=== PATIENT | female | born 2000 | race Caucasian/White ===

== ENCOUNTER 2021-06-30 14:28 | Emergency (ER) | payer OTHER, SELFPAY ==
--- NOTE | ~2021-06-30 | US_ITS ---
EXAMINATION: US OB <=14 wk fetus w TV EXAM DATE: 06/30/2021 20:19 INDICATION: r/o ectopic 1st trimester. Vaginal bleeding. TECHNIQUE: Pelvic obstetrical transabdominal sonogram was performed by a technologist. There are mu ltiple grayscale and Doppler images available for interpretation. There are no earlier studies of th is gestation for comparison. FINDINGS: Uterus measures 6.8 x 3.9 x 4.3 cm, and is morphologically normal. Endometrial stripe tanner ures 7 mm, within normal limits. There is small free pelvic fluid. Right adnexa: The ovary measures 3.7 x 2.5 x 1.9 cm and is morphologically normal. Ovarian vascular f low confirmed. Left adnexa: The ovary measures 2.7 x 1.6 x 1.2 cm and is morphologically normal. Ovarian vascular fl ow confirmed. IMPRESSION: No intrauterine or extrauterine identified. Early intrauterine or rec ent spontaneous are common causes of elevated beta hCG in absence of intrauterine confirmation. Ultrasound can sometimes identify, but never exclude an ectopic in the setti ng of positive beta hCG. Follow up as warranted clinically with serial beta hCG levels or ultrasound . Reviewed, dictated and finalized at location [facility] IMPRESSION: No intrauterine or extrauterine identified. Early intraut erine or recent spontaneous are common causes of elevated be ta hCG in absence of intrauterine confirmation. Ultrasound can somet imes identify, but never exclude an ectopic in the setting of positiv e beta hCG. Follow up as warranted clinically with serial beta hCG levels or u ltrasound.
[2021-06-30 14:32] VITALS: BP 137/72; PULSE 76; RESP 16; TEMP 36.3; O2SAT 100
[2021-06-30 18:11] VITALS: BP 120/77; BP 128/81; PULSE 49; PULSE 61
[2021-06-30 18:15] VITALS: BP 121/86; PULSE 76
[2021-06-30 18:22] LABS: Basophils Percent Auto 0.3 % (0.2-1.2); Eosinophils Absolute Auto 0.1 K/mm3 (0-0.3); Eosinophils Percent Auto 0.8 % (0-4.4); Hematocrit 39.9 % (37.0-47.0); Hemoglobin 13.5 g/dL (12.0-15.0); Immature Granulocyte Absolute 0.01 K/mm3 (0.00-0.031); Immature Granulocyte Percent A 0.2 % (0-0.5); Lymphocytes Absolute Auto 2.31 K/mm3 (0.9-3.2); Lymphocytes Percent Auto 39.2 % (18.3-44.2); Mean Corpuscular HGB Conc 33.8 g/dl (32-36); Mean Corpuscular Hemoglobin 29.3 pg (26-34); Mean Corpuscular Volume 86.7 fl (80-100); Mean Platelet Volume 10.3 fl (7.4-10.4); Monocytes Absolute Auto 0.4 K/mm3 (0.1-0.6); Monocytes Percent Auto 7.1 % (2.6-8.5); Neutrophils Absolute Auto 3.1 K/mm3 (1.3-6.7); Neutrophils Percent Auto 52.4 % (45.5-73.1); Platelet Count Result 236 k/mm3 (150-375); Red Cell Distribution Width 11.9 % (11.5-14.5); White Blood Count 5.9 K/mm3 (4.5-10.0)
--- NOTE | 2021-06-30 18:59 | ED.PREGNANCY ---
HPI - General Chief complaint: Vaginal Bleeding Stated complaint: vag bleed 5wks preg Time Seen by Provider: 06/30/21 17:24 Source: patient Mode of arrival: ambulatory Limitations: no limitations History of Present Illness HPI Narrative: This is a 21-year-old G1, P0, about 7 weeks that presents to the emergency department for vaginal bleeding. Reports she started to note vaginal bleeding 2 days ago. She has not seen an [employer]OR yet this or had an ultrasound. She has had some associated pelvic cramping. Denies fever or vomiting. Review of Systems Review of Systems: CONSTITUTIONAL: Denies fever GASTROINTESTINAL: Reports pelvic pain. Denies nausea, vomiting All systems reviewed & are unremarkable except as noted in HPI and below PMFSH Past Medical History Medical History (Updated 06/30/21 @ 21:08 by Mary Escamilla PA-C) History of hypothyroidism Social History Social History (Updated 06/30/21 @ 19:04 by Mary Escamilla PA-C) Smoking status: Never smoker Exam Narrative: GENERAL: Well-appearing, well-nourished, and in no acute distress. HEAD: Normocephalic, atraumatic. EYES: EOMI. CHEST: No respiratory distress. HEART: Regular rate EXTREMITIES: Normal range of motion. No edema. SKIN: Warm, dry, no rash. NEURO: No focal deficits. Alert and oriented x3. PSYCH: Normal mood and affect PELVIC: Normal external genitalia. Moderate amount of dark red blood in the vaginal vault. Cervix closed Course Vital Signs Vital signs: Vital Signs Temperature 97.3 F L 06/30/21 14:32 Pulse Rate 76 06/30/21 14:32 Respiratory Rate 16 06/30/21 14:32 Blood Pressure 137/72 06/30/21 14:32 Pulse Oximetry 100 06/30/21 14:32 Temperature 97.3 F L 06/30/21 14:32 Pulse Rate 54 L 06/30/21 21:02 Respiratory Rate 16 06/30/21 21:02 Blood Pressure 119/71 06/30/21 21:02 Pulse Oximetry 100 06/30/21 21:02 MDM - OB/Uterine Contractions MDM Narrative Medical decision making narrative: Patient presents to the emergency department for possible miscarriage. About 8 weeks by LMP. Reports she started to have pelvic cramping and vaginal bleeding 2 days ago. Her vitals are stable. Hemoglobin is normal. Moderate amount of bleeding on exam. Patient is O-. Given dose of RhoGam. Quantitative beta-hCG is 308. Obstetrics ultrasound is without intrauterine or extrauterine . Patient and family updated on case findings. Patient likely is having a miscarriage. She is not from this area. They are planning on continuing to drive home to see her doctor back at home. Was instructed to have close follow-up with her doctor to recheck her hormone and for further evaluation. She was given warnings to return to the ER Lab Data Attestation: I reviewed the patient's lab results. Result diagrams: 06/30/21 18:04 Labs: Lab Results 06/30/21 06/30/21 06/30/21 Range/Units 18:04 18:04 18:04 WBC 5.9 (4.5-10.0) K/mm3 RBC 4.60 (4.2-5.4) M/mm3 Hgb 13.5 (12.0-15.0) g/dL Hct 39.9 (37.0-47.0) % MCV 86.7 (80-100) fl MCH 29.3 (26-34) pg MCHC 33.8 (32-36) g/dl RDW 11.9 (11.5-14.5) % Plt Count 236 (150-375) k/mm3 MPV 10.3 (7.4-10.4) fl Immature Gran % (Auto) 0.2 (0-0.5) % Neut % (Auto) 52.4 (45.5-73.1) % Lymph % (Auto) 39.2 (18.3-44.2) % [place] % (Auto) 7.1 (2.6-8.5) % Eos % (Auto) 0.8 (0-4.4) % Baso % (Auto) 0.3 (0.2-1.2) % Lymph # (Auto) 2.31 (0.9-3.2) K/mm3 [place] # (Auto) 0.4 (0.1-0.6) K/mm3 Eos # (Auto) 0.1 (0-0.3) K/mm3 Baso # (Auto) 0.0 (0.0-0.1) K/mm3 Abs Immat Gran (auto) 0.01 (0.00-0.031) K/mm3 Absolute Neuts (auto) 3.1 (1.3-6.7) K/mm3 Absolute Nucleated RBC 0.0 (0.0-0.012) K/mm3 Nucleated RBC % 0.0 (0.0-0.2) % Beta HCG, Quant 308.10 mIU/ML Blood Type O Negative Antibody Screen Negative Screen TNP Baby's Blood Type Not
[2021-06-30 19:08] VITALS: BP 131/76; PULSE 53; RESP 16; O2SAT 100
[2021-06-30] MEDS: SODIUM CHLORIDE 0.9% IV 1,000 ML 999 ML IV CONT (19:08)
--- NOTE | 2021-06-30 20:06 | PC.NURSE ---
pt in [place] at present.
[2021-06-30 21:02] VITALS: BP 119/71; PULSE 54; RESP 16; O2SAT 100
[2021-06-30] MEDS: RHO(D) IMMUNE GLOBULIN 300 MCG/2 ML SYRINGE IM (21:04)
== END 2021-06-30 21:41 | disposition home or self-care (01) ==
PROVIDERS: Physician Assistant; Emergency Provider Emergency Medicine
DX: O03.9 Complete or unspecified spontaneous abortion without complication (principal); E03.9 Hypothyroidism, unspecified
CPT/HCPCS: 36415; 76801; 76817; 81025; 84702; 85025; 85461; 90384; 96360; 96372; 99284; J2790; J7030